=== PATIENT | female | born 1980 | race Caucasian/White ===

== ENCOUNTER 2017-01-21 09:46 | Emergency (ER) | payer BC ==
[~2017-01-21] VITALS: Ht 170.2 cm; Wt 81.7 kg
[~2017-01-21 09:46] MED LIST: FLONASE16 GM NS
[2017-01-21] MEDS ORDERED: BUTALB-ACETAMI1 EAC4 PO (10:07)
[2017-01-21] MEDS ORDERED: SYNTHROID112 MC1 PO (10:07)
[2017-01-21] MEDS ORDERED: MEDROL4 M2 PO (10:08)
[2017-01-21] MEDS ORDERED: IMITREX50 M2 PO (10:09)
[2017-01-21] MEDS ORDERED: ZOFRAN4 M2 PO (10:10)
[2017-01-21] MEDS ORDERED: SUMATRIPTAN SUC25 M1 PO (11:29)
== END 2017-01-21 12:00 ==
LOC: EDMED 09:46
DX: R51 Headache (principal); I10 Essential (primary) hypertension; Z88.2 Allergy status to sulfonamides; Z79.899 Other long term (current) drug therapy
CPT/HCPCS: J0780; J1200; J1885; J7030